=== PATIENT | male | born 1970 | race Caucasian/White ===

== ENCOUNTER 2016-10-23 06:50 | Emergency (ER) | payer OTHER ==
[~2016-10-23] VITALS: Ht 188 cm; Wt 90.7 kg
--- NOTE | ~2016-10-23 | CR72 ---
[facility] A Service of [facility] RADIOLOGY TEXT RESULTS PATIENT: ABISAI HICKEY LOCATION: [facility] : [birth year] UNIT #: [id number] AGE: [address]: Marline Posadas APRN SEX: M ORDER DR: [id number] [facility] [address] [place], [place] [address] [id number] E MR#: [id number] Acc #: [id number] NAME: ABISAI HICKEY. : 1970 SEX: M STUDY DATE/TIME: 10/23/2016 7:23 UNIT: [facility] ROOM: STUDY DESCRIPTION: CR Chest Single View Portable Attending Physician: Marline Posadas A.P.R.N. Ordering Physician: Ed Doctor [id number] [facility] Primary Care Physician: Abisai Ernst M.D. MEDICAL IMAGING REPORT This report is preliminary unless electronic signature is present EXAM Portable chest, 10/23 INDICATION Chest pain and shortness of air that started this morning. FINDINGS AP portable chest was obtained. No comparison. The lungs are clear. The cardiac and mediastinal contours are normal. There is no pneumothorax. There is an old right posterior eighth rib fracture. IMPRESSION No active disease. Dictated by... Kenny Poole Jr., M.D. THIS IS AN ELECTRONICALLY VERIFIED REPORT Kenny Poole Jr., M.D. at 10/23/2016 5:18 PM CHLOE/ferdinand TD: 10/23/2016 11:01 JOB #: [id number] MEDICAL IMAGING REPORT Page 1 of 1 COPY
--- NOTE | ~2016-10-23 | EKG ---
PATIENT: DONTA HICKEY UNIT #: [id number] Ventricular Rate: 83 BPM Atrial Rate: 83 BPM P-R Interval: 140 ms QRS Duration: 100 ms Q-T Interval: 360 ms QTC Calculation(Bezet): 423 ms P [place]: 16 degrees Calculated R [place]: -5 degrees Calculated T [place]: 14 degrees Diagnosis Line: Normal sinus rhythm Diagnosis Line: Incomplete right bundle branch block Diagnosis Line: Borderline ECG Diagnosis Line: No previous ECGs available Diagnosis Line: Confirmed by JEFF PIERSON MD ([id number]) on Diagnosis Line: 10/23/2016 9:37:26 AM INTERPRETING MD: DANGELO CAREY
--- NOTE | ~2016-10-23 | CT16 ---
[facility] A Service of [facility] RADIOLOGY TEXT RESULTS PATIENT: ABISAI HICKEY LOCATION: [facility] : [birth year] UNIT #: [id number] AGE: [address]: Marline Posadas APRN SEX: M ORDER DR: [id number] [facility] [address] [place], [place] [address] [id number] E MR#: [id number] Acc #: [id number] NAME: ABISAI HICKEY. : 1970 SEX: M STUDY DATE/TIME: 10/23/2016 09:33 UNIT: [facility] ROOM: STUDY DESCRIPTION: CT Angio Chest for PE Attending Physician: Marline Posadas A.P.R.N. Ordering Physician: Ed Doctor [id number] [facility] Primary Care Physician: Abisai Ernst M.D. MEDICAL IMAGING REPORT This report is preliminary unless electronic signature is present EXAM CT angiogram of the chest for pulmonary embolism, 10/23/2016 09:33 hours HISTORY 46-year-old man with 1-week history of constant aching chest pain with shortness of air. Evaluate for pulmonary embolism. COMPARISON Portable chest, 10/23/[address] angiographic images were obtained from the thoracic inlet through the upper abdomen. 3-D sagittal and coronal reconstructions were performed. Contrast was Isovue-370, 100 mL IV. Total exam DLP 651 mGy-cm. This CT exam was performed with one or more of the following radiation dose reduction techniques: automatic exposure control, adjustment of mA and/or kV according to patient size, and iterative reconstruction. FINDINGS Images through the thoracic inlet demonstrate no thyroid mass. Images through the chest demonstrate diagnostic quality opacification of the pulmonary arteries which are normal in caliber. There are no filling defects present to suggest the presence of pulmonary emboli. The aorta is only moderately well opacified but is normal in caliber without dissection. Cardiac chambers, pericardium and esophagus are normal. There is no lymphadenopathy. Lung window images demonstrate clear lungs. Bone window images demonstrate no rib fractures or rib lesions. [facility] A Service of [facility] RADIOLOGY TEXT RESULTS PATIENT: ABISAI HICKEY LOCATION: [facility] : 70 UNIT #: [id number] AGE: [address]: Marline Posadas APRN SEX: M ORDER DR: and manubrium appear normal. The thoracic spine demonstrates multiple Schmorl's nodes. There is mild vertebral body height at T6 of indeterminate age. Limited views through the upper abdomen demonstrate diffuse low attenuation of the liver relative to the spleen suggesting fatty infiltration. No focal liver or splenic lesion is seen. The gallbladder appears normal. There is no bile duct dilatation. Pancreas and pancreatic duct are normal. The adrenal glands are normal. IMPRESSION 1. No evidence of pulmonary embolism. 2. Normal aorta. 3. The lungs are clear with no pleural effusion or rib lesion. 4. Thoracic spine demonstrates multiple endplate Schmorl's nodes. There is mild vertebral body height loss at T6 of indeterminate age. Dictated by... Stephie Woodard M.D. THIS IS AN ELECTRONICALLY VERIFIED REPORT Stephie Woodard M.D. at 10/23/2016 2:28 PM Susana TD: 10/23/2016 14:11 JOB #: [id number] MEDICAL IMAGING REPORT Page 1 of 1 COPY
[~2016-10-23 06:50] MED LIST: VICODIN; VICODIN 5/1 TAB 5/50 PO
[2016-10-23 07:37] LABS: BASOPHIL% 0.4 % (0-2.5); EOSINOPHIL# 0.2 X10e3 (0-0.7); EOSINOPHIL% 4.7 % (0.0-7.0); HEMATOCRIT 45.3 % (38.0-50.0); HEMOGLOBIN 14.9 gm/dL (13.0-16.0); LYMPHOCYTE# 0.9 X10e3 (1.0-3.5); LYMPHOCYTE% 21.1 % (17.0-45.0); MEAN CELL VOLUME 95.1 FL (83-96); MEAN CORPUSCULAR HEMOGLOBIN 31.3 PG (28-34); MEAN CORPUSCULAR HGB CONC 32.9 g/dL (30-36); MEAN PLATELET VOLUME 6.6 FL (6.5-11.5); MONOCYTE# 0.7 X10e3 (0-1.0); MONOCYTE% 14.9 % (3.0-12.0); NEUTROPHIL# 2.6 X10e3 (1.5-7.1); NEUTROPHIL% 58.9 % (40-75); PLATELET COUNT 177 X10e3 (140-420); RED BLOOD COUNT 4.76 X10e (3.90-5.60); WHITE BLOOD COUNT 4.5 X10e3 (4.0-10.5)
[2016-10-23 07:40] LABS: DIFF IND NO
[2016-10-23 07:40] LABS: POC - CKMB 1.6 ng/mL (0.0-7.9); POC - TROPONIN <0.05 ng/mL (<=0.05)
[2016-10-23 07:52] LABS: INR 0.9; PARTIAL THROMBOPLASTIN TIME 24.5 SECONDS (23.5-31.3); PROTHROMBIN TIME (PATIENT) 9.8 SECONDS (10.0-11.7)
[2016-10-23 08:11] LABS: AMPHETAMINE NEG (NEG); BARBITURATES NEG (NEG); BENZODIAZEPINES NEG (NEG); COCAINE NEG (NEG); MARIJUANA NEG (NEG); OPIATES NEG (NEG); TRICYCLIC ANTIDEPRESSANTS NEG (NEG); U METHADONE NEG (NEG)
[2016-10-23 08:11] LABS: ALBUMIN SERUM 4.6 g/dL (3.5-5.0); ALKALINE PHOSPHATASE 81 U/L (32-92); ALT (SGPT) 129 U/L (10-40); AST (SGOT) 121 U/L (10-42); BILIRUBIN,TOTAL 0.8 mg/dL (0.2-2.0); BLOOD UREA NITROGEN 8 mg/dL (9-23); BUN/CREATININE RATIO 7.27; CALCIUM SERUM 9.4 mg/dL (8.4-10.2); CARBON DIOXIDE 26 mmol/L (22-31); CHLORIDE 104 mmol/L (100-111); CREATININE SERUM 1.1 mg/dL (0.6-1.4); GLOM FILT RATE Estimated 80.1 mL/min (>60); GLUCOSE FASTING 85 mg/dL (70-110); POTASSIUM 3.7 mmol/L (3.5-5.1); PROTEIN TOTAL SERUM 7.9 g/dL (6.0-8.3); SODIUM 140 mmol/L (135-145)
[2016-10-23 08:12] LABS: BILIRUBIN, DIRECT <0.1 mg/dL (0.0-0.2); BILIRUBIN,INDIRECT 0.7 mg/dL (0.0-0.9)
[2016-10-23 09:12] LABS: POC - CKMB <1.0 ng/mL (0.0-7.9); POC - TROPONIN <0.05 ng/mL (<=0.05)
== END 2016-10-23 10:26 | disposition home or self-care (01) ==
LOC: CED 06:50
PROVIDERS: Nurse Practitioner
DX: R07.89 Other chest pain (principal)
CPT/HCPCS: 36415; 71010; 71275; 80048; 80076; 80307; 82553; 83880; 84484; 85025; 85379; 85610; 85730; 93005; 96360; 99285; Q9967